=== PATIENT | female | born 1990 | race American Indian/Alaskan Native ===

== ENCOUNTER 2018-11-21 09:21 | Emergency (ER) | payer OTHER ==
[2018-11-21 09:51] VITALS: BP 125/77
[2018-11-21] MEDS ORDERED: BACTRIM DS PO ONE (10:55)
--- NOTE | 2018-11-21 11:00 | Emergency Department Report ---
- General Chief complaint: Skin/Abscess/Foreign Body Stated complaint: ABSCESS UNDER L ARM Time Seen by Provider: 11/21/18 10:19 Source: patient Mode of arrival: Ambulatory Limitations: No Limitations - History of Present Illness Initial comments: Ms. Silva presents with left underarm abscess. No fever. Hx of right underarm abscess. MD complaint: abscess/boil -: days(s) (3) Tetanus Up to Date: yes Severity: moderate Quality: aching Consistency: constant Improves with: none - Related Data Previous Rx's Medication Instructions Recorded Last Taken Type Cephalexin [Keflex] 500 mg PO BID #20 capsule 01/05/14 Unknown Rx HYDROcodone/APAP 5-325 [Seligman 1 each PO Q6HR PRN #14 tablet 01/05/14 Unknown Rx 5/325 mg] Ibuprofen [Motrin 600 MG tab] 600 mg PO Q8H PRN #30 tablet 01/05/14 Unknown Rx Mupirocin [Bactroban 2% Oint] 1 applic TP TID #22 gram 01/05/14 Unknown Rx Sulfamethoxazole/Trimethoprim 1 each PO BID #20 tablet 01/05/14 Unknown Rx [Bactrim Ds] Acetaminophen/Codeine [Tylenol 1 tab PO Q6H PRN #12 tab 07/18/18 Unknown Rx /Codeine # 3 tab] Sulfamethoxazole/Trimethoprim 1 each PO BID #14 tablet 07/18/18 Unknown Rx [Bactrim DS TAB] Fluconazole [Diflucan TAB] 100 mg PO QDAY #2 tablet 07/20/18 Unknown Rx Fluconazole [Diflucan TAB] 150 mg PO ONCE #1 tablet 11/21/18 Unknown Rx Sulfamethoxazole/Trimethoprim 1 each PO BID 10 Days #20 tablet 11/21/18 Unknown Rx [Bactrim DS TAB] Allergies Allergy/AdvReac Type Severity Reaction Status Date / Time amoxicillin [Amoxicillin] Allergy Rash Verified 07/18/18 07:11 Abscess Boil HPI - HPI Chief Complaint: Skin/Abscess/Foreign Body Stated Complaint: ABSCESS UNDER L ARM Time Seen by Provider: 11/21/18 10:19 Home Medications: Previous Rx's Medication Instructions Recorded Last Taken Type Cephalexin [Keflex] 500 mg PO BID #20 capsule 01/05/14 Unknown Rx HYDROcodone/APAP 5-325 [Seligman 1 each PO Q6HR PRN #14 tablet 01/05/14 Unknown Rx 5/325 mg] Ibuprofen [Motrin 600 MG tab] 600 mg PO Q8H PRN #30 tablet 01/05/14 Unknown Rx Mupirocin [Bactroban 2% Oint] 1 applic TP TID #22 gram 01/05/14 Unknown Rx Sulfamethoxazole/Trimethoprim 1 each PO BID #20 tablet 01/05/14 Unknown Rx [Bactrim Ds] Acetaminophen/Codeine [Tylenol 1 tab PO Q6H PRN #12 tab 07/18/18 Unknown Rx /Codeine # 3 tab] Sulfamethoxazole/Trimethoprim 1 each PO BID #14 tablet 07/18/18 Unknown Rx [Bactrim DS TAB] Fluconazole [Diflucan TAB] 100 mg PO QDAY #2 tablet 07/20/18 Unknown Rx Fluconazole [Diflucan TAB] 150 mg PO ONCE #1 tablet 11/21/18 Unknown Rx Sulfamethoxazole/Trimethoprim 1 each PO BID 10 Days #20 tablet 11/21/18 Unknown Rx [Bactrim DS TAB] Allergies/Adverse Reactions: Allergies Allergy/AdvReac Type Severity Reaction Status Date / Time amoxicillin [Amoxicillin] Allergy Rash Verified 07/18/18 07:11 ED Review of Systems ROS: Stated complaint: ABSCESS UNDER L ARM Other details as noted in HPI Constitutional: denies: fever, malaise Gastrointestinal: abdominal pain. denies: nausea, vomiting Skin: rash, lesions ED Past Medical Hx - Past Medical History Previous Medical History?: No - Surgical History Past Surgical History?: Yes Additional Surgical History: CYST REMOVED - Social History Smoking Status: Never Smoker Substance Use Type: Alcohol - Medications Home Medications: Home Medications Medication Instructions Recorded Confirmed Last Taken Type Cephalexin [Keflex] 500 mg PO BID #20 capsule 01/05/14 Unknown Rx HYDROcodone/APAP 5-325 [Seligman 1 each PO Q6HR PRN #14 tablet 01/05/14 Unknown Rx 5/325 mg] Ibuprofen [Motrin 600 MG tab] 600 mg PO Q8H PRN #30 tablet 01/05/14 Unknown Rx Mupirocin [Bactroban 2% Oint] 1 applic TP TID #22 gram 01/05/14 Unknown Rx Sulfamethoxazole/Trimethoprim 1 each PO BID #20 tablet 01/05/14 Unknown Rx [Bactrim Ds] Acetaminophen/Codeine [Tylenol 1 tab PO Q6H PRN #12 tab 07/18/18 Unknown Rx /Codeine # 3 tab] Sulfamethoxazole/Trimethoprim 1 each PO BID #14 tablet 07/18/18 Unknown Rx [Bactrim DS TAB] Fluconazole [Diflucan TAB] 100 mg PO QDAY #2 tablet 07/20/18 Unknown Rx Fluconazole [Diflucan TAB] 150 mg PO ONCE #1 tablet 11/21/18 Unknown Rx Sulfamethoxazole/Trimethoprim 1 each PO BID 10 Days #20 tablet 11/21/18 Unknown Rx [Bactrim DS TAB] ED Physical Exam - General Limitations: No Limitations General appearance: alert, in no apparent distress - Head Head exam: Present: atraumatic, normocephalic - Neck Neck exam: Present: normal inspection, full ROM - Other Other exam information: left axilla: 4 cm of fluctuance with 6 cm of erythema, actively draining pus, copious amount of pus ED Course Vital Signs 11/21/18 09:47 Temperature 98.2 F Pulse Rate 98 H Respiratory 20 Rate Blood Pressure 125/77 O2 Sat by Pulse 100 Oximetry - I & D Left Upper Arm Type of Procedure: Simple Site: 4 cm abscess Blade Size: 11 Progress: betadine prep, xylocaine local anesthesia 5 mL, 2 cm incision, 10 ml of pus expressed ED Medical Decision Making - Medical Decision Making Left axilla abscess, incision and drainage performing EGD. Tetanus status up to date. Prescription for Bactrim provided. Patient requested fluconazole which was also provided in prescription form. Critical care attestation.: If time is entered above; I have spent that time in minutes in the direct care of this critically ill patient, excluding procedure time. ED Disposition Clinical Impression: Abscess Disposition: DC-01 TO HOME OR SELFCARE Is pt being admited?: No Does the pt Need Aspirin: No Condition: Stable Instructions: Abscess Incision and Drainage (ED), Abscess (ED) Prescriptions: Sulfamethoxazole/Trimethoprim [Bactrim DS TAB] 1 each PO BID 10 Days #20 tablet Fluconazole [Diflucan TAB] 150 mg PO ONCE #1 tablet
== END 2018-11-21 11:12 | disposition home or self-care (01) ==
LOC: ED 09:21
DX: L02.411 Cutaneous abscess of right axilla (principal); Z88.1 Allergy status to other antibiotic agents

== ENCOUNTER 2022-06-13 16:32 | Emergency (ER) | payer MEDICAID ==
[2022-06-13 18:19] LABS: Alanine Aminotransferase 22 units/L (7-56); Albumin 4.2 g/dL (3.9-5); BUN/Creatinine Ratio 11; Blood Urea Nitrogen 8 mg/dL (7-17); Calcium 9.8 mg/dL (8.4-10.2); Hemolysis Index 3
[2022-06-13 18:26] LABS: Hematocrit 40.4 % (30.3-42.9); Hemoglobin 12.8 gm/dl (10.1-14.3); Mean Corpuscular HGB Conc 32 % (30-34); Mean Corpuscular Volume 73 fl (79-97); Platelet Count 330 K/mm3 (140-440); Red Blood Count 5.54 M/mm3 (3.65-5.03); Red Cell Distribution Width 13.8 % (13.2-15.2)
[2022-06-13 22:48] LABS: Bilirubin,Urine NEG (Negative); Blood,Urine NEG (Negative); Color,Urine Yellow (Yellow); Protein,Urine <15 mg/dL mg/dL (Negative); Urobilinogen,Urine < 2 mg/dL (<2.0)
[2022-06-13 22:55] LABS: Bacteria,Urine 1+ /HPF (Negative); RBC,Urine < 1.0 /HPF (0.0-6.0)
[2022-06-13 23:04] LABS: WBC,Urine < 1.0 /HPF (0.0-6.0)
[2022-06-14] VITALS: BP 148/96
== END 2022-06-14 11:38 | disposition left against medical advice (07) ==
LOC: ED 16:32
DX: O20.8 Other hemorrhage in early pregnancy (principal); Z53.21 Procedure and treatment not carried out due to patient leaving prior to being seen by health care provider; Z3A.08 8 weeks gestation of pregnancy
CPT/HCPCS: 36415; 80053; 81001; 84702; 85027; 86900; 86901